=== PATIENT | female | born 1945 | race Two or more races ===

== ENCOUNTER 2023-10-10 18:15 | Emergency (ER) | payer OTHER ==
[~2023-10-10] VITALS: Ht 144.8 cm; Wt 51.4 kg
[2023-10-10] MEDS: TraMADol HCL 50 MG TABLET PO ONE (21:39)
[2023-10-10 21:55] LABS: BASOPHILS % (AUTO) 0.3 % (0.0-2.0); EOSINOPHILS % (AUTO) 5.1 % (1.0-6.0); HEMATOCRIT 33.4 % (36-46); HEMOGLOBIN 11.2 g/dL (12.0-16.0); LYMPHOCYTES # (AUTO) 2.9 K/uL (1.0-4.8); LYMPHOCYTES % (AUTO) 27.8 % (22.0-44.0); MEAN CORPUSCULAR HGB CONC 33.6 G/dL (31.0-37.0); MEAN CORPUSCULAR VOLUME 86 fL (80-100); MONOCYTES # (AUTO) 0.6 K/uL (0.1-1.0); MONOCYTES % (AUTO) 5.9 % (2.0-9.0); NEUTROPHILS # (AUTO) 6.3 K/uL (1.8-7.7); NEUTROPHILS % (AUTO) 60.9 % (40.0-70.0); PLATELET COUNT (AUTO) 261 K/uL (150-450); RED BLOOD CELL COUNT(AUTO) 3.87 MIL/uL (4.00-5.20); RED CELL DISTRIBUTION WIDTH 13.7 % (11.5-14.5); WHITE BLOOD COUNT (AUTO) 10.3 K/uL (4.5-11.0)
[2023-10-10 22:02] LABS: ALBUMIN 3.7 g/dL (3.4-5.0); BILIRUBIN,TOTAL 0.2 mg/dL (0.1-1.0); CALCIUM, TOTAL 8.4 mg/dL (8.8-10.5); CREATININE 1.49 mg/dL (0.60-1.30)
[2023-10-10] MEDS ORDERED: TRAM50TA5 PO (22:43)
[2023-10-10] MEDS ORDERED: LIDO700A15 TP (22:43)
[2023-10-11] MEDS: LIDOCAINE 5% TRANSDERMAL PATCH TD ONE (00:35)
[2023-10-11 00:57] VITALS: BP 144/77; PULSE 70; RESP 18; TEMP 97.8
== END 2023-10-11 00:59 | disposition home or self-care (01) ==
LOC: EMS 18:17 → EDBD 18:17 → EMS 10-11 00:59
DX: M54.50 Low back pain, unspecified (principal); M75.21 Bicipital tendinitis, right shoulder; E11.9 Type 2 diabetes mellitus without complications; I10 Essential (primary) hypertension; M54.31 Sciatica, right side
CPT/HCPCS: 70450; 72100; 80053; 85025; 99284